=== PATIENT | male | born 1990 | race Caucasian/White ===

== ENCOUNTER 2017-05-27 15:55 | Emergency (ER) | payer OTHER ==
[~2017-05-27] VITALS: Ht 177.8 cm; Wt 77.3 kg
[~2017-05-27 15:55] MED LIST: DIAZ5TAB PO; GLUCOMETER XX; GLUCOMTESTSTRIPS XX; NOVO7030P2 SQ; TOPI100T PO
[2017-05-27] MEDS ORDERED: DEXTROSE 50% IN WATER 50 ML SYRINGE ONE (16:44)
[2017-05-27 16:47] VITALS: BP 150/70; PULSE 108; RESP 22; TEMP 98.9
[2017-05-27 17:00] VITALS: PULSE 108
[2017-05-27] MEDS ORDERED: SODIUM CHLOR 0.9% 1000 ML INJ 1,000 ML IV ONE ×2 (17:12)
[2017-05-27] MEDS ORDERED: SODIUM CHLOR 0.9% 1000 ML INJ 400 ML IV ONE (17:12)
[2017-05-27] MEDS ORDERED: DEXTROSE 50% IN WATER 50 ML VIAL(D50) IV PUSH ONE (17:15)
--- NOTE | 2017-05-27 17:24 | PD ---
HPI Chief Complaint: Diabetic Time Seen by Provider: 16:56 Travel History International Travel<30 days: No Contact w/Intl Traveler<30days: No Traveled to known affect area: No History of Present Illness HPI 26-year-old male came to the emergency room with history of hypoglycemia and hyperglycemic seizure. The report was mostly given by the job site supervisor. Apparently they went to a house call twice today for hypoglycemia and seizure. Finally the third time they were able to bring him to the emergency room because the last couple times he refused to come in. As per them patient had 2 episodes of seizures. He was in the hallway waiting to be brought in and upon checking the blood sugar it was 34. By the time he was brought in I had ordered D50 1 amp. After which patient started to talk and told me that he took too much insulin because he ate and tried to compensate by taking more insulin. He never checked his blood sugar since he does not have a glucometer or have money to buy it. PFSH Past Medical History Narrative Medical List of his past medical, surgical, social and family history was reviewed from the nursing note. Diabetes: Yes (type I) Patient Takes Glucophage: No Tetanus Vaccination: < 5 Years Influenza Vaccination: No Social History Alcohol Use: Yes (hx quit 3 months) Tobacco Use: Yes (1-2 ppd 2 hrs ago) Substance Use: No (hx lavelle 2 weeks) Allergies-Medications (Allergen,Severity, Reaction): Coded Allergies: No Known Allergies (Unverified , 05/27/17) Comments No known drug allergies. Reported Meds & Prescriptions Reported Meds & Active Scripts Active Narrative Medication List of his home medications reviewed from the nursing note. Review of Systems Except as stated in HPI: all other systems reviewed are Neg Physical Exam Narrative GENERAL: Lethargic, answering questions, slurred speech SKIN: Focused skin assessment warm/dry. Diaphoretic HEAD: Atraumatic. Normocephalic. EYES: Pupils equal and round. No scleral icterus. No injection or drainage. ENT: No nasal bleeding or discharge. Mucous membranes pink and moist. NECK: Trachea midline. No JVD. CARDIOVASCULAR: Regular rate and rhythm. No murmur appreciated. RESPIRATORY: No accessory muscle use. Clear to auscultation. Breath sounds equal bilaterally. GASTROINTESTINAL: Abdomen soft, non-tender, nondistended. Hepatic and splenic margins not palpable. MUSCULOSKELETAL: No obvious deformities. No clubbing. No cyanosis. Bilateral 3 + pedal edema NEUROLOGICAL: Awake and alert. No obvious cranial nerve deficits. Motor grossly within normal limits. Normal speech. PSYCHIATRIC: Appropriate mood and affect; insight and judgment normal. Data Data Last Documented VS Vital Signs Date Time Temp Pulse Resp B/P Pulse Ox O2 Delivery O2 Flow Rate FiO2 05/27/17 17:00 108 05/27/17 17:00 98 Nasal Cannula 2 05/27/17 16:47 98.9 22 150/70 Orders Dextrose 50% In Dionicio (Syr) Inj (D50w (Syr (05/27/17 16:44) Blood Glucose (05/27/17 17:12) Ecg Monitoring (05/27/17 17:12) Iv Access Insert/Monitor (05/27/17 17:12) Oximetry (05/27/17 17:12) Oxygen Administration (05/27/17 17:12) Sodium Chlor 0.9% 1000 Ml Inj (Ns 1000 M (05/27/17 17:12) Sodium Chlor 0.9% 1000 Ml Inj (Ns 1000 M (05/27/17 17:12) Sodium Chlor 0.9% 1000 Ml Inj (Ns 1000 M (05/27/17 17:12) Dextrose 50% In Dionicio (Vial) Inj (D50w (Vi (05/27/17 17:15) Electrocardiogram (05/27/17 17:09) MDM Medical Decision Making Medical Screen Exam Complete: Yes Emergency Medical Condition: Yes Medical Record Reviewed: Yes Interpretation(s) Twelve-lead EKG was reviewed by me. Normal sinus rhythm, normal axis, nonspecific ST-T wave changes, tachycardia. Heart rate of 108 bpm. Differential Diagnosis Hypoglycemic seizure, insulin overdose Narrative Course 6:30 PM once patient woke up he refused to stay in the emergency room and get any workup. He just wanted to leave. His mother and was in the room and he'll get them and called verbal profanities. Patient was AAO x3 and hence in full capacity to make decisions for himself. Unfortunately I could not keep him against his wishes given his full capacity. He understood the risk of leaving including . Patient signed AMA. This was all discussed in front of his family. Procedures EKG Prior to Arrival: No Diagnosis Primary Impression: Hypoglycemia Additional Impression: Seizures Disposition: 07 AGAINST MEDICAL ADVICE Condition: Serious Chetan,Shravanti R. MD May 27, 2017 17:24 Condition: Serious Alexsandra Benton MD May 27, 2017 17:24
--- NOTE | 2017-05-28 15:09 | EKG ---
Date Performed: 05/27/2017 Time Performed: 17:09:47 PTAGE: 26 years EKG: SINUS TACHYCARDIA ABNORMAL RHYTHM ECG NO PREVIOUS TRACING DOCTOR: Svetlana Ku Interpretating Date/Time 05/28/2017 15:03:35
== END 2017-05-27 17:25 | disposition left against medical advice (07) ==
LOC: NEPE 15:55
DX: E10.649 Type 1 diabetes mellitus with hypoglycemia without coma (principal); R00.0 Tachycardia, unspecified; R94.31 Abnormal electrocardiogram [ECG] [EKG]; R56.9 Unspecified convulsions; F17.200 Nicotine dependence, unspecified, uncomplicated
CPT/HCPCS: 93005; 96374